=== PATIENT | male | born 1960 | race Asian ===

== ENCOUNTER 2019-01-24 17:06 | Emergency (ER) | payer OTHER ==
[2019-01-24 17:30] VITALS: BP 174/102
--- NOTE | 2019-01-24 17:30 | Emergency Department Report ---
Stated Complaint: DIABETIC/FOOT AND ANKLE/HYPERTENSION Time Seen by Provider: 01/24/19 17:24 - HPI History of Present Illness: This is a 58 y.o. male that presents with pain to left ankle and medication refills. Patient states he been off medication for 90 days because he can't afford them. PMH: DM & HTN - Exam Vital Signs: Vital Signs 01/24/19 17:24 Temperature 98 F Pulse Rate 63 Respiratory 16 Rate Blood Pressure 174/102 O2 Sat by Pulse 95 Oximetry MSE screening note: Focused history and physical exam performed. Due to findings the following was ordered: XR left ankle POC 95 ACC for further evaluation ED Disposition for MSE Condition: Stable
--- NOTE | 2019-01-24 20:33 | Emergency Department Report ---
ED Extremity Problem HPI - General Chief complaint: Extremity Injury, Lower Stated complaint: DIABETIC/FOOT AND ANKLE/HYPERTENSION Time Seen by Provider: 01/24/19 17:24 Source: patient Mode of arrival: Ambulatory Limitations: No Limitations - History of Present Illness Initial comments: 58-year-old -[place] male with a past medical history of hypertension and diabetes and left ankle injury with hardware. Patient comes in complaining of left ankle pain 2 days. Patient reports he has taken nothing for pain. Patient also reports that he has diabetes and has been off of his medications for the last 4 months. Patient reports he has not seen his primary care provider in the last 90 days which [facility]. Patient reports that his last A1c was below 7.0. She denies any chest pain shortness of breathing and nausea no vomiting no headache. MD Complaint: extremity pain -: days(s) (2) Location: left (ankle) History of Same: Yes -: Yes arthralgia Severity scale (0 -10): 10 Quality: aching Consistency: intermittent Worsens with: walking, palpation - Related Data Allergies Allergy/AdvReac Type Severity Reaction Status Date / Time No Known Allergies Allergy Verified 01/24/19 17:24 ED Review of Systems ROS: Stated complaint: DIABETIC/FOOT AND ANKLE/HYPERTENSION Other details as noted in HPI Comment: All other systems reviewed and negative Respiratory: denies: cough, shortness of breath Cardiovascular: denies: chest pain, palpitations, dyspnea on exertion Musculoskeletal: arthralgia (left ankle) Neurological: denies: headache, weakness, paresthesias ED Past Medical Hx - Past Medical History Previous Medical History?: Yes Hx Hypertension: Yes Hx Diabetes: Yes - Surgical History Past Surgical History?: Yes Additional Surgical History: left ankle surgery - Social History Smoking Status: Never Smoker Substance Use Type: None ED Physical Exam - General Limitations: No Limitations General appearance: alert, in no apparent distress - Head Head exam: Present: atraumatic, normocephalic - Eye Eye exam: Present: EOMI - ENT ENT exam: Present: mucous membranes moist - Expanded Lower Extremity Exam Left Hip exam: Present: full ROM Upper Leg exam: Present: normal inspection Knee exam: Present: normal inspection Lower Leg exam: Present: normal inspection Ankle exam: Present: tenderness. Absent: full ROM (decrease range of motion secondary to metal plate in place.), swelling Foot/Toe exam: Present: normal inspection. Absent: tenderness, swelling Neuro vascular tendon exam: Present: no vascular compromise ED Course Vital Signs 01/24/19 17:24 Temperature 98 F Pulse Rate 63 Respiratory 16 Rate Blood Pressure 174/102 O2 Sat by Pulse 95 Oximetry ED Medical Decision Making - Medical Decision Making Patient has been evaluated by this provider in fast track. Patient will be given ibuprofen for pain management. Discussed patient this is a chronic issue and that he needs to try taking [id number] Tylenol or ibuprofen as he has tried nothing. Also discussed the patient that he needs to follow up with [place] for his chronic disease management. Patient has no complications of his hypertension such as headache shortness of breath chest pain. Patient diabetes and is not causing him any urinary frequency urinary urgency increased thirst or weight loss. Critical care attestation.: If time is entered above; I have spent that time in minutes in the direct care of this critically ill patient, excluding procedure time. ED Disposition Clinical Impression: Chronic pain of left ankle Disposition: DC-01 TO HOME OR SELFCARE Is pt being admited?: No Does the pt Need Aspirin: No Condition: Stable Instructions: Arthralgia (ED) Additional Instructions: Please follow up with your [place] provider for management of your chronic diseases. Try taking Tylenol or Motrin for pain management if you pain persists follow up with [place] to discuss pain management tonight. Referrals: IRENE KAISER MD [Primary Care Provider] - 3-5 Days [facility] [Outside] - 3-5 Days
[2019-01-24] MEDS ORDERED: IBUPROFEN PO ONE (21:08)
--- NOTE | 2019-01-24 21:23 | XRay Report ---
PROCEDURE: XR ANKLE 2V LT TECHNIQUE: 2 views left ankle HISTORY: ankle pain COMPARISONS: None FINDINGS: Global osteopenia. There has been calcaneal plating. The calcaneus shows posttraumatic deformity. Mortise is preserved. Plafond is intact. There is disruption of the Kager fat pad and anterior pretib ial fat plane. The imaged foot is demineralized. No acute fractures are identified however. IMPRESSION: Soft tissue reticulation of Kager's fat pad and the anterior pretibial space. Previous calcaneal plating with posttraumatic deformity. No acute fractures. This document is electronically signed by Annie Chandler MD., January 24 2019 09:21:44 PM ET
== END 2019-01-24 21:22 | disposition home or self-care (01) ==
LOC: ED 17:06
DX: M25.572 Pain in left ankle and joints of left foot (principal); G89.29 Other chronic pain; E11.9 Type 2 diabetes mellitus without complications; I10 Essential (primary) hypertension
CPT/HCPCS: 82962